=== PATIENT | female | born 1940 | race Asian ===

== ENCOUNTER 2016-07-06 14:53 | Emergency (ER) | payer SELFPAY ==
[2016-07-06] MEDS ORDERED: IOPAMIDOL-300 100 ML VIAL IVP ONE (17:25)
== END 2016-07-06 19:28 | disposition home or self-care (01) ==
DX: R16.0 Hepatomegaly, not elsewhere classified (principal); I10 Essential (primary) hypertension; Z98.890 Other specified postprocedural states
CPT/HCPCS: 36415; 74177; 80053; 80074; 83690; 85025; 99283; 99284; Q9967

== ENCOUNTER 2016-12-02 09:38 | Outpatient (CLI) | payer MEDICARE ==
--- NOTE | 2016-12-03 15:44 | Mammography Report ---
DIGITAL SCREENING MAMMOGRAM: 12/02/2016 CLINICAL INDICATION: A 76-year-old for screening. COMPARISON: 04/2007 TECHNIQUE: Routine CC and MLO projections were obtained of the breasts. FINDINGS: Scattered fibroglandular tissue is present within the breasts. There are no dominant gee s, suspicious microcalcifications, or secondary signs of malignancy. In comparison to the previous st udies, there are no significant changes. ASSESSMENT: NO MAMMOGRAPHIC EVIDENCE OF MALIGNANCY. NO SIGNIFICANT INTERVAL CHANGES. RECOMMENDATION: Screening mammography is recommended annually. BI-RADS category 1 - negative. STANDARD QUALIFYING STATEMENTS 1. This examination was reviewed with the aid of Computed-Aided Detection (CAD). 2. A negative or benign imaging report should not delay biopsy if clinically suspicious findings are present. Consider surgical consultation if warranted. More than 5% of cancers are not identified by i maging. 3. Dense breasts may obscure an underlying neoplasm. JOB #: [id number] EXT JOB #:[id number]
== END 2016-12-02 09:39 | disposition home or self-care (01) ==
LOC: DI 09:38
PROVIDERS: ATTEND Family Medicine
DX: Z12.31 Encounter for screening mammogram for malignant neoplasm of breast (principal)
CPT/HCPCS: 77067

== ENCOUNTER 2016-12-02 09:40 | Outpatient (CLI) | payer MEDICARE ==
--- NOTE | 2016-12-03 09:26 | DEXA Report ---
DEXA SCAN: 12/02/2016 CLINICAL INDICATION: Postmenopausal. TECHNIQUE: Dual energy x-ray absorptiometry (DXA) was performed on a [employer] system. Regions measured are the AP spine, femoral neck, and, if needed, forearm. COMPARISON: None. In accordance with the International Society for Clinical Densitometry (ISCD) guidelines, data from previous exams may be reanalyzed using current recommendations and techniques. This is done to allow a more accurate basis for comparison with the current study. FINDINGS: The data for the lumbar spine is as follows: REGION BMD (g/cm/cm) T-SCORE Z-SCORE L1 1.221 0.8 2.2 L2 1.168 -0.3 1.2 L3 1.279 0.7 2.1 L4 1.317 1.0 2.4 TOTAL 1.249 0.6 2.0 NOTE: All evaluable vertebrae are used for classification. The data for the hip is as follows: REGION BMD (g/cm/cm) T-SCORE Z-SCORE Neck 0.699 -2.4 -0.6 TOTAL 0.814 -1.5 0.1 NOTE: The femoral neck or total proximal femur, whichever is lowest, is used for classification. IMPRESSION: THE WHO CLASSIFICATION BASED ON THE INTERNATIONAL REFERENCE STANDARD IS OSTEOPENIA. THE FRACTURE RISK IS INCREASED. RECOMMENDATION: Patients with diagnosis of osteoporosis or osteopenia should have regular bone mineral density assessment. For those eligible for Medicare, routine testing is allowed once every 2 years. Testing frequency can be increased for patients who have rapidly progressing disease or for those who are receiving medical therapy to restore bone mass. COMMENT: World Health Organization (WHO) definitions for osteoporosis and osteopenia: NORMAL BMD: T-score at -1.0 or higher, fracture risk is low. OSTEOPENIA BMD: T-score between -1.0 and -2.5, fracture risk is increased. OSTEOPOROSIS BMD: T-score at -2.5 or lower, fracture risk high. National Osteoporosis Foundation recommends: 1. Obtain adequate dietary calcium (at least 1200 mg per day) and vitamin D (400 -800 international units per day). 2. Participate, as appropriate, in regular weightbearing and muscle- strengthening exercise. 3. Avoid tobacco use and reduce alcohol and caffeine intake. 4. For more detailed information see the website at www.NOF.org. MTDD
== END 2016-12-02 09:41 | disposition home or self-care (01) ==
LOC: DI 09:40
PROVIDERS: ATTEND Family Medicine
DX: M85.88 Other specified disorders of bone density and structure, other site (principal)
CPT/HCPCS: 77080

== ENCOUNTER 2017-12-19 15:28 | Outpatient (CLI) | payer MEDICARE ==
--- NOTE | 2017-12-19 16:30 | XRAY Report ---
Procedure Date: 12/19/2017 Accession Number: [id number] / [id number] Procedure: XRN - Lumbar Spine 2 View CPT Code: FULL RESULT: EXAM: LUMBOSACRAL SPINE RADIOGRAPHY EXAM DATE: 12/19/2017 04:05 PM. CLINICAL HISTORY: HEART MURMUR, LUMBAGO W/SCIATICA,SHOULDER JOINT PA. COMPARISONS: Lumbar spine radiograph 03/28/2015. TECHNIQUE: 3 views. FINDINGS: Alignment: Mild leftward convex mid lumbar scoliosis centered at L3. Sagittal alignment is normal. Bones: Last complete disk space designated L5-S1. No fractures or bone lesions. Disks: There is evidence of multilevel moderate lumbar disc and facet degeneration, most pronounced at the mid to lower lumbar levels. Facets: As above. Sacroiliac Joints: Unremarkable. Soft Tissues: Paraspinous soft tissues are unremarkable.Atherosclerotic arterial calcifications are present. IMPRESSION: 1. No acute osseous abnormality. 2. Scoliosis. Multilevel lumbar degeneration. RADIA
--- NOTE | 2017-12-19 16:32 | XRAY Report ---
Procedure Date: 12/19/2017 Accession Number: [id number] / [id number] Procedure: XRN - Shoulder 2 View LT CPT Code: FULL RESULT: EXAM: LEFT SHOULDER RADIOGRAPHY EXAM DATE: 12/19/2017 03:52 PM. CLINICAL HISTORY: HEART MURMUR, LUMBAGO W/SCIATICA,SHOULDER JOINT PA. COMPARISON: Chest radiograph 03/28/2015. TECHNIQUE: 2 views. FINDINGS: Bones: No fractures or bone lesions. Joints: Mild to moderate left AC joint DJD.Glenohumeral joint appears grossly preserved. There is undersurface discontinuity of the distal clavicle and acromion which is probably similar to prior and may reflect old AC joint injury. Soft Tissues: Unremarkable. IMPRESSION: 1. No acute osseous abnormality. RADIA
--- NOTE | 2017-12-19 16:36 | XRAY Report ---
Procedure Date: 12/19/2017 Accession Number: [id number] / [id number] Procedure: XRN - Chest 2 View X-Ray CPT Code: 77633 FULL RESULT: EXAM: CHEST RADIOGRAPHY EXAM DATE: 12/19/2017 03:49 PM. CLINICAL HISTORY: HEART MURMUR, LUMBAGO W/SCIATICA,SHOULDER JOINT PA. COMPARISON: 11/18/2016. TECHNIQUE: 2 views. FINDINGS: Lungs/Pleura: Minimal bibasal opacity probably atelectasis. No focal opacities evident. No pleural effusion. No pneumothorax. Normal volumes. Mediastinum: Heart and mediastinal contours are unremarkable. Other: Multilevel thoracic spinal degeneration. No acute osseous abnormality. IMPRESSION: No convincing acute cardiopulmonary abnormality. RADIA
== END 2017-12-19 15:29 | disposition home or self-care (01) ==
LOC: DI.N 15:28
PROVIDERS: ATTEND Nurse Practitioner
DX: M51.16 Intervertebral disc disorders with radiculopathy, lumbar region (principal); M41.86 Other forms of scoliosis, lumbar region; M25.512 Pain in left shoulder; I35.0 Nonrheumatic aortic (valve) stenosis; I10 Essential (primary) hypertension
CPT/HCPCS: 71046; 72100

== ENCOUNTER 2018-04-26 10:54 | Outpatient (CLI) | payer MEDICARE, MEDICAID | END 2018-04-26 23:59 | disposition home or self-care (01) | LOC: LAB.N 10:54 | PROVIDERS: ATTEND Nurse Practitioner | DX: M10.9 Gout, unspecified (principal) | CPT/HCPCS: 36415; 84550 ==

== ENCOUNTER 2018-05-04 09:51 | Outpatient (CLI) | payer MEDICARE, MEDICAID | END 2018-05-04 23:59 | disposition home or self-care (01) | LOC: LAB.N 09:51 | PROVIDERS: ATTEND Nurse Practitioner | DX: M10.9 Gout, unspecified (principal) | CPT/HCPCS: 36415; 84550 ==

== ENCOUNTER 2018-07-10 08:00 | Outpatient (CLI) | payer MEDICARE, MEDICAID | END 2018-07-10 23:59 | disposition home or self-care (01) | LOC: LAB.N 08:00 | PROVIDERS: ATTEND Nurse Practitioner | DX: M10.9 Gout, unspecified (principal) | CPT/HCPCS: 36415; 84550 ==

== ENCOUNTER 2018-07-12 12:40 | Emergency (ER) | payer MEDICARE, MEDICAID ==
[2018-07-12 12:49] VITALS: BP 143/73
--- NOTE | 2018-07-12 13:12 | ED Physician Documentation ---
PD HPI HEENT - Stated complaint Stated Complaint: EAR PX/BLEEDING - Chief complaint Chief Complaint: Heent - History obtained from History obtained from: Patient, Family - History of Present Illness Timing - onset: Today (She went to the doctor's office today with a flushed her ears and now she has bleeding from the right ear. It was painful but is not anymore.) Review of Systems Constitutional: reports: Reviewed and negative Nose: denies: Rhinorrhea / runny nose, Foreign Body Throat: denies: Dental pain / toothache, Sore throat PD PAST MEDICAL HISTORY - Past Medical History Cardiovascular: Hypertension - Past Surgical History Past Surgical History: No - Present Medications Home Medications: Ambulatory Orders Medication Instructions Recorded Confirmed Allopurinol 100 mg PO DAILY 07/12/18 07/12/18 Lisinopril 20 mg PO DAILY 07/12/18 07/12/18 Neomycin/Polymyx/Hc Otic Drops 4 drops OT TID #1 bottle 07/12/18 [Cortisporin Ear Susp] - Allergies Allergies/Adverse Reactions: Allergies Allergy/AdvReac Type Severity Reaction Status Date / Time No Known Drug Allergies Allergy Verified 07/12/18 12:48 - Social History Does the pt smoke?: No Does the pt drink ETOH?: No Does the pt have substance abuse?: No - Immunizations Immunizations: Other immun current PD ED PE NORMAL - Vitals Vital signs reviewed: Yes - General General: No acute distress, Well developed/nourished - HEENT HEENT: Other (The TMs are normal. She has an abrasion of the right inferior ear canal with dried blood on it.) - Neck Neck: Supple, no meningeal sign, No bony TTP - Neuro Neuro: Alert and oriented X 3, Normal speech Results - Vitals Vitals: Vital Signs - 24 hr 07/12/18 12:46 Temperature 35.9 C L Heart Rate 94 Respiratory 14 Rate Blood Pressure 143/73 H O2 Saturation 100 Oxygen O2 Source Room air Departure - Departure Disposition: 01 Home, Self Care Clinical Impression: Abrasion of right ear canal Qualifiers: Encounter type: initial encounter Qualified Code(s): S00.411A - Abrasion of right ear, initial encounter Condition: Good Record reviewed to determine appropriate education?: Yes Prescriptions: Neomycin/Polymyx/Hc Otic Drops [Cortisporin Ear Susp] 4 drops OT TID #1 bottle Comments: Follow-up with your doctor at the end of the week if not better. Return for new or worsening symptoms. Your blood pressure was elevated today on check into the emergency department. This does not mean that you have hypertension, it is a common phenomenon to come to the emergency department and have elevated blood pressure. I recommend that you see your primary care physician within the week to have it rechecked when you are feeling better.
== END 2018-07-12 13:20 | disposition home or self-care (01) ==
LOC: ED 12:40
DX: S00.411A Abrasion of right ear, initial encounter (principal); X58.XXXA Exposure to other specified factors, initial encounter; Y93.89 Activity, other specified; Y92.531 Health care provider office as the place of occurrence of the external cause; I10 Essential (primary) hypertension
CPT/HCPCS: 99283

== ENCOUNTER 2019-02-02 08:51 | Outpatient (CLI) | payer MEDICARE, MEDICAID ==
[2019-02-02 13:12] LABS: BASOPHILS # (AUTO) 0.1 10^3/uL (0.0-0.1); BASOPHILS % (AUTO) 1.2 %; EOSINOPHILS # (AUTO) 0.3 10^3/uL (0.0-0.7); EOSINOPHILS % (AUTO) 3.4 %; HGB - HEMOGLOBIN 12.1 g/dL (12.0-16.0); LYMPHOCYTES % (AUTO) 27.1 %; MEAN CORPUSCULAR HEMOGLOBIN 31.1 pg (27.0-31.0); MEAN CORPUSCULAR HGB CONC 32.6 g/dL (32.0-36.0); MEAN CORPUSCULAR VOLUME 95.4 fL (81.0-99.0); MEAN PLATELET VOLUME 10.9 fL (7.9-10.8); MONOCYTES # (AUTO) 0.6 10^3/uL (0.0-1.0); MONOCYTES % (AUTO) 8.1 %; NEUTROPHILS # (AUTO) 4.4 10^3/uL (1.5-6.6); NEUTROPHILS % (AUTO) 59.4 %; PLT - PLATELET COUNT 275 10^3/uL (130-450); RED BLOOD COUNT 3.89 10^6/uL (4.20-5.40); WHITE BLOOD COUNT 7.4 x10^3/uL (4.8-10.8)
[2019-02-02 13:30] LABS: ALBUMIN 3.7 g/dL (3.2-5.5); ALKALINE PHOSPHATASE 69 IU/L (42-121); ALT ALANINE AMINOTRANSFERASE 17 IU/L (10-60); AST ASPARTATE AMINOTRANSFERASE 20 IU/L (10-42); BILIRUBIN,TOTAL 0.5 mg/dL (0.2-1.0); BUN - BLOOD UREA NITROGEN 19 mg/dL (6-20); CARBON DIOXIDE - CO2 26 mmol/L (21-32); CHLORIDE 107 mmol/L (101-111); CHOL/HDL RATIO 2.4 (<4.4); CHOLESTEROL 176 mg/dL; CREATININE 0.9 mg/dL (0.4-1.0); GFR - MDRD 60 (>89); GLUCOSE 114 mg/dL (70-100); HDL CHOLESTEROL 73 mg/dL; LDL CHOLESTEROL,CALCULATED 76 mg/dL; SODIUM 142 mmol/L (135-145); TOTAL PROTEIN 7.4 g/dL (6.7-8.2); URIC ACID 6.6 mg/dL (2.6-7.2); VLDL CHOLESTEROL 27 mg/dL
== END 2019-02-02 23:59 | disposition home or self-care (01) ==
LOC: LAB.N 08:51
PROVIDERS: ATTEND Nurse Practitioner Gerontology
DX: M10.9 Gout, unspecified (principal); E78.2 Mixed hyperlipidemia; I10 Essential (primary) hypertension
CPT/HCPCS: 36415; 80053; 80061; 83721; 84550; 85025

== ENCOUNTER 2019-06-18 13:15 | Outpatient (CLI) | payer MEDICARE, MEDICAID ==
--- NOTE | 2019-06-19 13:37 | XRAY Report ---
Reason: +PPD Procedure Date: 06/18/2019 Accession Number: [id number] / [id number] Procedure: XRN - Chest 2 View X-Ray CPT Code: 77365 Final Report FULL RESULT: EXAM: CHEST RADIOGRAPHY EXAM DATE: 06/18/2019 01:46 PM. CLINICAL HISTORY: +PPD. COMPARISON: SHOULDER 2 VIEW LT 12/19/2017 3:52 PM CHEST 2 VIEW 12/19/2017 3:49 PM. TECHNIQUE: 2 views. FINDINGS: Lungs/Pleura: No focal opacities evident. No pleural effusion. No pneumothorax. Normal volumes. Mediastinum: Heart and mediastinal contours are unremarkable. Other: None. IMPRESSION: Normal 2-view chest radiography. No radiographic evidence for TB or interval change. RADIA
--- NOTE | 2019-06-19 13:40 | XRAY Report ---
Reason: CHRONIC KNEE PAIN Procedure Date: 06/18/2019 Accession Number: [id number] / [id number] Procedure: XRN - Knee 3 View RT CPT Code: Final Report FULL RESULT: EXAM: RIGHT KNEE RADIOGRAPHY EXAM DATE: 06/18/2019 01:46 PM. CLINICAL HISTORY: Right chronic knee pain. COMPARISON: None. TECHNIQUE: 3 views. FINDINGS: Bones: Normal. No fractures or bone lesions. Joints: A small joint effusion is noted. There is mild to moderate medial compartment joint space loss with periarticular osteophytes. More mild patellar compartment osteophytes also present. The lateral compartment is unremarkable. Soft Tissues: Normal. No soft tissue swelling. IMPRESSION: 1. 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 2. Small joint effusion. RADIA
== END 2019-06-18 13:16 | disposition home or self-care (01) ==
LOC: DI.N 13:15
PROVIDERS: ATTEND Nurse Practitioner Gerontology
DX: R76.11 Nonspecific reaction to tuberculin skin test without active tuberculosis (principal); M17.11 Unilateral primary osteoarthritis, right knee; M25.461 Effusion, right knee
CPT/HCPCS: 71046

== ENCOUNTER 2020-03-14 10:26 | Outpatient (CLI) | payer MEDICARE, MEDICAID ==
[2020-03-14 18:40] LABS: BASOPHILS # (AUTO) 0.1 10^3/uL (0.0-0.1); BASOPHILS % (AUTO) 1.5 %; EOSINOPHILS # (AUTO) 0.4 10^3/uL (0.0-0.7); HGB - HEMOGLOBIN 11.6 g/dL (12.0-16.0); LYMPHOCYTES # (AUTO) 2.1 10^3/uL (1.5-3.5); LYMPHOCYTES % (AUTO) 26.4 %; MEAN CORPUSCULAR HEMOGLOBIN 30.4 pg (27.0-31.0); MEAN CORPUSCULAR HGB CONC 31.1 g/dL (32.0-36.0); MEAN CORPUSCULAR VOLUME 97.6 fL (81.0-99.0); MEAN PLATELET VOLUME 10.3 fL (7.9-10.8); MONOCYTES # (AUTO) 0.6 10^3/uL (0.0-1.0); MONOCYTES % (AUTO) 7.3 %; NEUTROPHILS # (AUTO) 4.8 10^3/uL (1.5-6.6); NEUTROPHILS % (AUTO) 58.9 %; PLT - PLATELET COUNT 312 10^3/uL (130-450); RED BLOOD COUNT 3.82 10^6/uL (4.20-5.40); RED CELL DISTRIBUTION WIDTH 13.6 % (12.0-15.0); WHITE BLOOD COUNT 8.1 x10^3/uL (4.8-10.8)
[2020-03-14 19:04] LABS: ALBUMIN 3.8 g/dL (3.2-5.5); ALKALINE PHOSPHATASE 61 IU/L (42-121); ALT ALANINE AMINOTRANSFERASE 16 IU/L (10-60); AST ASPARTATE AMINOTRANSFERASE 22 IU/L (10-42); BILIRUBIN,TOTAL 0.6 mg/dL (0.2-1.0); BUN - BLOOD UREA NITROGEN 21 mg/dL (6-20); CALCIUM 9.3 mg/dL (8.5-10.3); CARBON DIOXIDE - CO2 25 mmol/L (21-32); CHLORIDE 103 mmol/L (101-111); CREATININE 0.9 mg/dL (0.4-1.0); GLUCOSE 109 mg/dL (70-100); SODIUM 139 mmol/L (135-145); TOTAL PROTEIN 7.8 g/dL (6.7-8.2); URIC ACID 6.6 mg/dL (2.6-7.2)
[2020-03-14 19:05] LABS: CHOL/HDL RATIO 2.4 (<4.4); CHOLESTEROL 170 mg/dL; HDL CHOLESTEROL 72 mg/dL; LDL CHOLESTEROL,CALCULATED 61 mg/dL; LDL/HDL RATIO 0.8 (<4.4); VLDL CHOLESTEROL 37 mg/dL
[2020-03-14 19:10] LABS: CRP - C-REACTIVE PROTEIN < 1.0 mg/dL (0-1.0)
[2020-03-14 19:41] LABS: RHEUMATOID FACTOR NEGATIVE (Negative)
== END 2020-03-14 23:59 | disposition home or self-care (01) ==
LOC: LAB.WCP 10:26
PROVIDERS: ATTEND Family Medicine
DX: M19.90 Unspecified osteoarthritis, unspecified site (principal); J44.9 Chronic obstructive pulmonary disease, unspecified; M10.9 Gout, unspecified; E78.2 Mixed hyperlipidemia; I10 Essential (primary) hypertension
CPT/HCPCS: 36415; 80053; 80061; 83721; 84443; 84550; 85025; 85651; 86140; 86430

== ENCOUNTER 2020-07-17 08:00 | Outpatient (CLI) | payer MEDICARE, MEDICAID ==
[2020-07-17 18:44] LABS: THYROID STIMULATING HORMONE 0.9 uIU/mL (0.34-5.60)
[2020-07-17 18:45] LABS: FREE T3 3.26 pg/mL (2.5-3.9)
[2020-07-17 18:46] LABS: FREE T4 (FREE THYROXINE) 1.01 ng/dL (0.58-1.64)
== END 2020-07-17 23:59 | disposition home or self-care (01) ==
LOC: LAB.WCP 08:00
PROVIDERS: ATTEND Family Medicine
DX: L85.3 Xerosis cutis (principal); K59.09 Other constipation; R01.2 Other cardiac sounds
CPT/HCPCS: 36415; 84439; 84443; 84481

== ENCOUNTER 2020-08-29 09:07 | Outpatient (CLI) | payer MEDICARE, MEDICAID | END 2020-08-29 09:08 | disposition home or self-care (01) | LOC: DI 09:07 | PROVIDERS: ATTEND Family Medicine | DX: R00.0 Tachycardia, unspecified (principal); I49.3 Ventricular premature depolarization; I35.0 Nonrheumatic aortic (valve) stenosis; I70.0 Atherosclerosis of aorta | CPT/HCPCS: 93306 ==

== ENCOUNTER 2020-12-25 08:19 | Outpatient (CLI) | payer MEDICARE, MEDICAID ==
[2020-12-25 11:42] LABS: BASOPHILS # (AUTO) 0.1 10^3/uL (0.0-0.1); BASOPHILS % (AUTO) 0.9 %; EOSINOPHILS # (AUTO) 0.3 10^3/uL (0.0-0.7); EOSINOPHILS % (AUTO) 3.3 %; HCT - HEMATOCRIT 35.7 % (37.0-47.0); HGB - HEMOGLOBIN 11.3 g/dL (12.0-16.0); LYMPHOCYTES # (AUTO) 2.3 10^3/uL (1.5-3.5); MEAN CORPUSCULAR HEMOGLOBIN 30.4 pg (27.0-31.0); MEAN CORPUSCULAR HGB CONC 31.7 g/dL (32.0-36.0); MEAN PLATELET VOLUME 10.7 fL (7.9-10.8); MONOCYTES # (AUTO) 0.7 10^3/uL (0.0-1.0); MONOCYTES % (AUTO) 7.8 %; NEUTROPHILS # (AUTO) 5.7 10^3/uL (1.5-6.6); NEUTROPHILS % (AUTO) 62.1 %; PLT - PLATELET COUNT 279 10^3/uL (130-450); RED BLOOD COUNT 3.72 10^6/uL (4.20-5.40); RED CELL DISTRIBUTION WIDTH 13.3 % (12.0-15.0); WHITE BLOOD COUNT 9.1 x10^3/uL (4.8-10.8)
[2020-12-25 12:35] LABS: THYROID STIMULATING HORMONE 1.06 uIU/mL (0.34-5.60)
[2020-12-25 12:45] LABS: ALBUMIN 3.6 g/dL (3.2-5.5); ALBUMIN/GLOBULIN RATIO 0.9 (1.0-2.2); ALKALINE PHOSPHATASE 80 IU/L (42-121); ALT ALANINE AMINOTRANSFERASE 14 IU/L (10-60); AST ASPARTATE AMINOTRANSFERASE 20 IU/L (10-42); BILIRUBIN,TOTAL 0.5 mg/dL (0.2-1.0); BUN - BLOOD UREA NITROGEN 23 mg/dL (6-20); CARBON DIOXIDE - CO2 25 mmol/L (21-32); CHLORIDE 98 mmol/L (101-111); CHOL/HDL RATIO 2.9 (<4.4); CHOLESTEROL 191 mg/dL; CREATININE 1.1 mg/dL (0.4-1.0); GFR - MDRD 48 (>89); GLUCOSE 171 mg/dL (70-100); HDL CHOLESTEROL 67 mg/dL; LDL CHOLESTEROL,CALCULATED 91 mg/dL; LDL/HDL RATIO 1.4 (<4.4); POTASSIUM 3.6 mmol/L (3.5-5.0); SODIUM 135 mmol/L (135-145); TOTAL PROTEIN 7.5 g/dL (6.7-8.2); TRIGLYCERIDES 167 mg/dL; VLDL CHOLESTEROL 33 mg/dL
== END 2020-12-25 23:59 | disposition home or self-care (01) ==
LOC: LAB.WCP 08:19
PROVIDERS: ATTEND Family Medicine
DX: E78.2 Mixed hyperlipidemia (principal); I10 Essential (primary) hypertension; M25.561 Pain in right knee; G89.29 Other chronic pain; J44.9 Chronic obstructive pulmonary disease, unspecified; M10.9 Gout, unspecified; I35.0 Nonrheumatic aortic (valve) stenosis
CPT/HCPCS: 36415; 80053; 80061; 83721; 84443; 85025

== ENCOUNTER 2021-08-20 13:04 | Outpatient (CLI) | payer MEDICARE, MEDICAID ==
[2021-08-20 18:18] LABS: HCT - HEMATOCRIT 39.6 % (37.0-47.0); HGB - HEMOGLOBIN 12.5 g/dL (12.0-16.0); MEAN CORPUSCULAR HEMOGLOBIN 30.1 pg (27.0-31.0); MEAN CORPUSCULAR HGB CONC 31.6 g/dL (32.0-36.0); MEAN CORPUSCULAR VOLUME 95.4 fL (81.0-99.0); MEAN PLATELET VOLUME 10.9 fL (7.9-10.8); RED BLOOD COUNT 4.15 10^6/uL (4.20-5.40); RED CELL DISTRIBUTION WIDTH 13.6 % (12.0-15.0); WHITE BLOOD COUNT 12.3 x10^3/uL (4.8-10.8)
[2021-08-20 18:31] LABS: CALCIUM 9.1 mg/dL (8.5-10.3); CREATININE 0.9 mg/dL (0.4-1.0)
== END 2021-08-20 13:05 | disposition home or self-care (01) ==
LOC: LAB.N 13:04
PROVIDERS: ATTEND Family Medicine
DX: I10 Essential (primary) hypertension (principal); R06.09 Other forms of dyspnea; R73.9 Hyperglycemia, unspecified
CPT/HCPCS: 36415; 80048; 81599; 83036; 83880; 85027

== ENCOUNTER 2021-11-21 13:42 | Emergency (ER) | payer MEDICARE, MEDICAID ==
[2021-11-21 14:31] LABS: BASOPHILS # (AUTO) 0.1 10^3/uL (0.0-0.1); BASOPHILS % (AUTO) 0.9 %; EOSINOPHILS # (AUTO) 0.2 10^3/uL (0.0-0.7); EOSINOPHILS % (AUTO) 2.3 %; HCT - HEMATOCRIT 35.4 % (37.0-47.0); HGB - HEMOGLOBIN 11.8 g/dL (12.0-16.0); LYMPHOCYTES # (AUTO) 2.8 10^3/uL (1.5-3.5); LYMPHOCYTES % (AUTO) 28.3 %; MEAN CORPUSCULAR HEMOGLOBIN 31.2 pg (27.0-31.0); MEAN CORPUSCULAR HGB CONC 33.3 g/dL (32.0-36.0); MEAN CORPUSCULAR VOLUME 93.7 fL (81.0-99.0); MEAN PLATELET VOLUME 10.8 fL (7.9-10.8); MONOCYTES # (AUTO) 0.7 10^3/uL (0.0-1.0); NEUTROPHILS # (AUTO) 6.1 10^3/uL (1.5-6.6); NEUTROPHILS % (AUTO) 60.5 %; PLT - PLATELET COUNT 269 10^3/uL (130-450); RED BLOOD COUNT 3.78 10^6/uL (4.20-5.40); RED CELL DISTRIBUTION WIDTH 14.6 % (12.0-15.0)
[2021-11-21 14:43] LABS: ALBUMIN 3.9 g/dL (3.2-5.5); BILIRUBIN,TOTAL 0.5 mg/dL (0.2-1.0); CALCIUM 9.6 mg/dL (8.5-10.3); CREATININE 2.2 mg/dL (0.4-1.0); MAGNESIUM 1.5 mg/dL (1.7-2.8); POTASSIUM 4.2 mmol/L (3.5-5.0)
--- NOTE | 2021-11-21 15:36 | Ultrasound Report ---
PROCEDURE: Duplex Ext Veins Bilateral INDICATIONS: Swelling TECHNIQUE: Real-time imaging, as well as color and pulse Doppler interrogation, were performed of the deep veins of both legs from the inguinal ligament to the popliteal fossa. COMPARISON: None FINDINGS: The deep veins are normally compressible, and free of intraluminal thrombus. Color and pu lse Doppler demonstrate normal phasic intravascular flow. There is normal augmentation response to d istal compression maneuver. Exam limited by patient body habitus. Small bilateral Pena cysts, larger on the right measures up to 2.6 cm . IMPRESSION: No evidence of deep venous thrombosis, bilateral lower extremities Bilateral popliteal cysts Reviewed by: Aman Serrano MD on 11/21/2021 2:34 PM CECILY Approved by: Aman Serrano MD on 11/21/2021 2:34 PM CECILY Station ID: [id number]
[2021-11-21] MEDS ORDERED: LACTATED RINGERS 1,000 ML IV ONE (15:53)
[2021-11-21] MEDS ORDERED: SODIUM CHLORIDE 0.9% 1,000 ML IV STA (15:53)
--- NOTE | 2021-11-21 15:54 | ED Physician Documentation ---
History of Present Illness - Stated complaint Stated Complaint: GLF/BODY PX - Chief complaint Chief Complaint: Trauma Ext - History obtained from History obtained from: Patient, Family - Additonal information Additional information: This is a jeanie 81-year-old woman who presents accompanied by daughter after referral from the walk-in clinic for the evaluation of bilateral leg pain and tachycardia. She slipped on a dog training pad about 3 weeks ago and now has progressive cramps in both legs. She went to the walk-in clinic today and they noted her to be tachycardic into the 120s so she was referred here for further evaluation and treatment. Of note she is on 2 diuretics, chlorthalidone and furosemide. Daughter states that she is on these because she used to be swollen "a long time ago." She has no edema now. These medications are not new. Review of Systems Ten Systems: 10 systems reviewed and negative Constitutional: reports: Reviewed and negative Eyes: reports: Reviewed and negative Throat: reports: Reviewed and negative Cardiac: reports: Reviewed and negative Respiratory: reports: Reviewed and negative PD PAST MEDICAL HISTORY - Past Medical History Past Medical History: Yes Cardiovascular: Hypertension, High cholesterol Respiratory: None, Asthma Neuro: None Endocrine/Autoimmune: Type 2 diabetes HEENT: Chronic hearing loss Psych: None Musculoskeletal: Gout Derm: None - Past Surgical History Past Surgical History: No - Present Medications Home Medications: Ambulatory Orders Medication Instructions Recorded Confirmed Atorvastatin [Lipitor] 20 mg ORAL HS 11/21/21 11/21/21 Chlorthalidone 25 mg ORAL DAILY 11/21/21 11/21/21 Furosemide [Lasix] 20 mg PO DAILY 11/21/21 11/21/21 Ipratropium/Albuterol [Combivent 2 puffs IH QID 11/21/21 11/21/21 Respimat] Lisinopril [Zestril] 30 mg PO DAILY 11/21/21 11/21/21 Meloxicam [Mobic] 15 mg PO DAILY 11/21/21 11/21/21 allopurinoL [Zyloprim] 200 mg PO DAILY 11/21/21 11/21/21 metFORMIN [Glucophage] 500 mg PO BIDWM 11/21/21 11/21/21 - Allergies Allergies/Adverse Reactions: Allergies Allergy/AdvReac Type Severity Reaction Status Date / Time No Known Drug Allergies Allergy Verified 11/21/21 14:01 - Social History Does the pt smoke?: No Smoking Status: Never smoker Does the pt drink ETOH?: No Does the pt have substance abuse?: No - Immunizations Immunizations: Other immun current PD ED PE NORMAL - Vitals Vital signs reviewed: Yes - General General: Alert and oriented X 3, No acute distress - HEENT HEENT: PERRL, EOMI - Neck Neck: Supple, no meningeal sign, No bony TTP - Cardiac Cardiac: Other (She is tachycardic with some ectopy and a 3 out of 6 decrescendo systolic murmur that the daughter says her physician is aware of.) - Respiratory Respiratory: No respiratory distress, Clear bilaterally - Abdomen Abdomen: Non tender - Derm Derm: Normal color, Warm and dry - Extremities Extremities: Other (There is no pedal edema, her legs are nontender with full range of motion. ) - Neuro Neuro: Alert and oriented X 3, Normal speech Results - Vitals Vitals: Vital Signs - 24 hr 11/21/21 11/21/21 13:55 15:57 Temperature 36.4 C L Heart Rate 119 H 98 Respiratory 20 16 Rate Blood Pressure 153/82 H 173/60 H O2 Saturation 99 100 Oxygen O2 Source Room air - EKG (time done) 1409 Rate: Rate (enter#) (123) Rhythm: Sinus tachycardia (With PVCs) Intervals: Other (LAFB) QRS: Normal Ischemia: Non specific changes. No: ST elevation c/w ischemia, ST depression - Labs Labs: Laboratory Tests 11/21/21 11/21/21 11/21/21 14:26 14:26 14:26 WBC 10.0 RBC 3.78 L Hgb 11.8 L Hct 35.4 L MCV 93.7 MCH 31.2 H MCHC 33.3 RDW 14.6 Plt Count 269 MPV 10.8 Neut # (Auto) 6.1 Lymph # (Auto) 2.8 Pershing # (Auto) 0.7 Eos # (Auto) 0.2 Baso # (Auto) 0.1 Absolute Nucleated RBC 0.00 Nucleated RBC % 0.0 D-Dimer 305.4 H Sodium 138 Potassium 4.2 Chloride 102 Carbon Dioxide 21 Anion Gap 15.0 H BUN 60 H Creatinine 2.2 H Estimated GFR (MDRD) 21 L Glucose 113 H Calcium 9.6 Magnesium 1.5 L Total Bilirubin 0.5 AST 21 ALT 14 Alkaline Phosphatase 58 Total Creatine Kinase 92 Total Protein 8.0 Albumin 3.9 Globulin 4.1 Albumin/Globulin Ratio 1.0 PD MEDICAL DECISION MAKING - ED course ED course: 81-year-old woman presents for the evaluation of bilateral leg pain, she was referred from clinic because of tachycardia and I guess some concern for thromboembolic disease. Her age-adjusted D-dimer is negative. Her leg ultrasound bilaterally is negative for DVT. She is noted today to have a BUN of 60 and a creatinine of 2.2. Her usual BUN is in the low 20s and creatinine around 1. I suspect this prerenal azotemia is contributing to her tachycardia and she also has some hypomagnesemia and together this is probably causing the leg cramps. She is hydrated here with 2 L of crystalloid and magnesium repleted IV. Departure - Departure Disposition: 01 Home, Self Care Clinical Impression: Prerenal azotemia Leg pain Qualifiers: Laterality: bilateral Qualified Code(s): M79.604 - Pain in right leg Condition: Good Record reviewed to determine appropriate education?: Yes Instructions: ED Dehydration, ED Muscle Pain Leg Cramps Comments: He was seen today for leg pain. There is no evidence of blood clots, but we did find that you were quite dehydrated and your magnesium level was low. This can certainly cause leg pain. We gave you 2 L of IV fluids and some magnesium th rough the IV. I think this will help a lot. You should stop your diuretics, specifically the furosemide and chlorthalidone for now and follow-up with your doctor on Tuesday or Tuesday for recheck, potential for repeat labs to recheck the dehydration numbers. Return if worse. Drink plenty of fluids.
[2021-11-21] MEDS ORDERED: MAGNESIUM SULFATE 2 GRAM 2 GM/50 ML BAG IV ONE (15:55)
[2021-11-21 15:58] VITALS: BP 173/60
== END 2021-11-21 18:12 | disposition home or self-care (01) ==
LOC: ED 13:42
DX: R79.89 Other specified abnormal findings of blood chemistry (principal); E83.42 Hypomagnesemia; E86.0 Dehydration; I10 Essential (primary) hypertension; E78.1 Pure hyperglyceridemia; E11.9 Type 2 diabetes mellitus without complications; I35.0 Nonrheumatic aortic (valve) stenosis; E03.9 Hypothyroidism, unspecified; J44.9 Chronic obstructive pulmonary disease, unspecified; M10.9 Gout, unspecified; Z79.84 Long term (current) use of oral hypoglycemic drugs
CPT/HCPCS: 36415; 80053; 80061; 82043; 82550; 82570; 83036; 83735; 84443; 85025; 85379; 93005; 93970; 96361; 96365; 99284; J7120; 83721

== ENCOUNTER 2021-11-26 11:10 | Outpatient (CLI) | payer MEDICARE, MEDICAID ==
[2021-11-26 17:53] LABS: CALCIUM 9.4 mg/dL (8.5-10.3); CREATININE 1.3 mg/dL (0.4-1.0); POTASSIUM 4.6 mmol/L (3.5-5.0)
== END 2021-11-26 11:11 | disposition home or self-care (01) ==
LOC: LAB.N 11:10
PROVIDERS: ATTEND Family Medicine
DX: N17.0 Acute kidney failure with tubular necrosis (principal)
CPT/HCPCS: 36415; 80048